=== PATIENT | female | born 1975 | race Caucasian/White ===

== ENCOUNTER → 2020-03-12 11:45 | Outpatient (BNVA) | payer BC, SELFPAY | PROVIDERS: Family Provider Family Medicine; PCP Family Medicine; Visit Provider Obstetrics & Gynecology | DX: N92.1 Excessive and frequent menstruation with irregular cycle (principal) | CPT/HCPCS: 83001; 84146; 84443; 85025 ==

== ENCOUNTER → 2020-10-16 08:09 | Outpatient (BNVA) | payer BC, SELFPAY | PROVIDERS: Family Provider Family Medicine; PCP Family Medicine; Visit Provider Obstetrics & Gynecology | DX: N92.0 Excessive and frequent menstruation with regular cycle (principal) | CPT/HCPCS: 76830 ==

== ENCOUNTER → 2020-10-18 13:48 | Outpatient (BNVA) | payer BC, SELFPAY | PROVIDERS: Family Provider Family Medicine; PCP Family Medicine; Visit Provider Obstetrics & Gynecology | DX: N92.1 Excessive and frequent menstruation with irregular cycle (principal) | CPT/HCPCS: 88305 ==

== ENCOUNTER → 2020-12-10 09:34 | Outpatient (BNVA) | payer BC, SELFPAY | PROVIDERS: Family Provider Family Medicine; PCP Family Medicine; Visit Provider Obstetrics & Gynecology | DX: Z20.822 Contact with and (suspected) exposure to COVID-19 (principal) | CPT/HCPCS: 87635 ==

== ENCOUNTER 2020-12-12 11:22 | Day surgery (SDC) | payer BC, SELFPAY ==
[2020-12-10 11:58] VITALS: BMI 26.5
--- NOTE | 2020-12-10 12:19 | P.ANESASSM_ITS ---
Pre-Anesthetic Assessment Pre-Anesthetic Assessment: Height/Weight: Height 1.6 m Weight 68.039 kg Preop Diagnosis: Abnormal uterine bleeding, endometrial polyp Proposed Procedure: Operation Date: 12/12/20 09:15 Proposed Procedures p Hysteroscopy w/ Myosure 15405 [id number] N84.0 N92.1(Not Applicable) - Bryan Mackay MD s Dilation And Curettage (D&C) polypectomy(Not Applicable) - Bryan Mckeon MD Familial anesthetic complications: None Social: Social History: No alcohol and No tobacco Exam: Pre-Anes Outpt Exam: alert, oriented x 3, clear to auscultation bilater ally and regular rate & rhythm Airway: Cervical ROM: WNL MP: 1 Dentition: Full Anesthetic Plan: ASA status: 1 Anesthesia: MAC Risk of > 500 ml blood loss (7ml/kg in children): No PFSH Anesthesia PFSH: Medical History Menorrhagia 44-year-old female with abnormal uterine bleeding. Referring she has been bleeding since July. She was prescribed OCPs. She referred a stop for a couple days because she started bleeding again. CBC, TSH, FSH, and pelvic ultrasound within normal limits. Family History Grandfather Heart disease maternal Grandmother Stroke maternal Family/Other Diabetes maternal aunt, maternal uncle, nephew Social History (Updated 12/10/20 @ 08:20 by Itzel Juarez RN) Smoking and tobacco status: never smoked Alcohol intake: current Alcohol intake frequency: 0-2 Drinks per Day Alcohol type: beer Data Anesthesia Cardiac Studies: No Data to Display
[2020-12-10 12:20] LABS: Add Urine Microscopic? NO
[2020-12-10 12:30] LABS: Basophils # 0.1 10^3/uL (0.0-0.1); Basophils % 0.7 %; Eosinophils # 0.1 10^3/uL (0.0-0.8); Eosinophils % 1.7 %; Hematocrit 38.3 % (37.0-47.0); Hemoglobin 12.4 g/dL (11.5-15.3); Lymphocytes # 1.7 10^3/uL (0.8-4.8); Lymphocytes % 23.8 %; Mean Corpuscular HGB Conc 32.4 g/dL (30.0-36.0); Mean Corpuscular Hemoglobin 29.5 pg (28.0-34.0); Mean Corpuscular Volume 91.2 fL (81-99); Mean Platelet Volume 10.3 fL (7.4-10.4); Monocytes # 0.6 10^3/uL (0.2-0.9); Monocytes % 7.8 %; Neutrophils # 4.73 10^3/uL (1.8-7.7); Neutrophils % 65.7 %; Nucleated Red Blood Cells % 0 %; Platelet Count 385 10^3/cmm (130-400); Red Cell Distribution Width 13.6 % (12.1-15.1); White Blood Count 7.2 10^3/uL (4.0-10.0)
[2020-12-10 12:35] LABS: OR HCG Qualitative Urine Negative (Negative)
[2020-12-10 12:36] LABS: Bilirubin Urine Neg (Negative); Blood Urine Neg (Negative); Glucose Urine UA Norm (Normal); Ketones Urine Negative (Negative); Leukocyte Esterase Urine Negative (Negative); Nitrate Urine Negative (Negative); Protein Urine Neg (Negative); Specific Gravity, Urine 1.015 (1.005-1.030); Urine Appearance Clear (CLEAR); Urine Color Yellow (Yellow); Urobilinogen Urine Norm (Negative); pH Urine 5 (5-7)
[2020-12-10 12:54] LABS: Alanine Aminotransferase 11 U/L (0-33); Albumin Level 4.3 g/dL (3.5-5.2); Alkaline Phosphatase 38 IU/L (35-105); Anion Gap 10.9 (5-19); Aspartate Amino Transferase 16 U/L (0-32); Blood Urea Nitrogen 10 mg/dL (6-20); Calcium 9.1 mg/dL (8.5-10.5); Carbon Dioxide 29 mmol/L (22-29); Chloride 103 mmol/L (98-107); Globulin 2.5 g/dL (1.3-4.6); Glomerular Filtration Rate 90.1 mL/min (90-130); Glucose 99 mg/dL (65-115); Osmolality Calculated 287 mOsm/kg (285-295); Potassium 3.9 mmol/L (3.5-5.1); Sodium 139 mmol/L (136-145); Total Bilirubin 0.2 mg/dL (0.15-1.2); Total Protein 6.8 g/dL (6.6-8.7)
[2020-12-12 11:37] LABS: OR HCG Qualitative Urine Negative (Negative)
[2020-12-12 11:50] VITALS: BP 157/94; PULSE 67; RESP 16; TEMP 36.6; O2SAT 99
[2020-12-12] MEDS: sodium chloride 0.9% 1,000 ML 30 ML IV (12:05)
[2020-12-12] MEDS: scopolamine 1.5 Patch 1 PATCH TRANSDERMA (12:06)
--- NOTE | 2020-12-12 12:54 | P.ANESUD_ITS ---
Pre-Anesthetic Update Pre-Anesthetic Assessment: Date of Surgery/Procedure: 12/12/20 Preop Melissa gnosis: Abnormal uterine bleeding, endometrial polyp Proposed Procedure: Operation Date: 12/12/20 12:50 Proposed Procedures p Hysteroscopy w/ Myosure 42187 [id number] N84.0 N92.1(Not Applicable) - Bryan Mckeon MD s Dilation And Curettage (D&C) polypectomy(Not Applicable) - Bryan Mckeon MD Any changes to Pre-Anesthetic Assessment?: No Last Intake: Intake Last Liquid Date 12/12/20 Last Liquid Time 07:00 Last Solid Date 12/11/20 Last Solid Time 21:00 Labs Last 48hrs: Laboratory Results - last 48 hr 12/10/20 12/10/20 12/12/20 12:12 12:12 11:32 Sodium 139 Potassium 3.9 Chloride 103 Carbon Dioxide 29 Anion Gap 10.9 BUN 10 Creatinine 0.7 GFR Calculation 90.1 Glucose 99 Calculated Osmolal ity 287 Calcium 9.1 Total Bilirubin 0.2 AST 16 ALT 11 Alkaline Phosphata se 38 Total Protein 6.8 Albumin 4.3 Globulin 2.5 Urine HCG, Qual Negative Blood Type A Positive Rho(D) Type Positive Antibody Screen Negative Vitals: Temperature 97.8 F 12/12/20 11:50 Pulse Rate 67 12/12/20 11:50 Respiratory Rate 16 12/12/20 11:50 Blood Pressure 157/94 12/12/20 11:50 Blood Pressure Cyndy n 115 12/12/20 11:50 Pulse Oximetry 99 12/12/20 11:50 Exam: Pre-Anes Outpt Exam: alert, oriented x 3, clear to auscultation bilaterally and regular rate & rhythm Cardiac Studies: No Data to Display
--- NOTE | 2020-12-12 13:17 | W.PM.OPSUD ---
Surgery/Procedure H&P Update DATE OF PROCEDURE: December 12, 2020 DATE H&P PERFORMED: 12/10/20 H&P UPDATE INFORMATION: I have reviewed H&P completed within last 30 days, I have examined patient prior to procedure and No changes to prior documentation PREOP DIAGNOSIS: Abnormal uterine bleeding, endometrial polyp PLANNED PROCEDURE: Operation Date: 12/12/20 12:50 Proposed Procedures p Hysteroscopy w/ Myosure 22475 52950 N84.0 N92.1(Not Applicable) - Bryan Mckeon MD s Dilation And Curettage (D&C) polypectomy(Not Applicable) - Bryan Mckeon MD
--- NOTE | 2020-12-12 14:40 | PM.OP ---
Operative Report Date of procedure: December 12, 2020 Pre-op Diagnosis: Abnormal uterine bleeding, endometrial polyp Post-op diagnosis: same Post-op Findings: Proliferative endometrium Procedure Done: Hysteroscopy with D&C via MyoSure Estimated blood loss (mL): 10 IV fluids (mL): 1,000 Complications: none Findings: Proliferative endometrium Brief History: 45-year-old female with abnormal uterine bleeding unresponsive to medical management Procedure: After informed consent, the risks included but were not limited to bleeding, infection, injury to internal organs. The patient was counseled on a possible laparotomy and on the potential need for hysterectomy. The patient expressed understanding of the risks involved, all questions were answered, and the patient consented to the procedure. The patient was taken to the operating room where general anesthesia was administered. She was placed in the dorsal lithotomy position and prepped and draped in sterile fashion. A time out procedure was performed. The patient was examined under anesthesia and found to have a normal uterus with normal adnexa. A sterile weight speculum was placed in the vagina. The uterus was then gently sounded to 8 cm, and the cervix was dilated. The 0 degrees MyoSure hysteroscope was advanced gently to the uterine fundus while visualizing the monitor. Survey of the uterine cavity showed: Proliferative endometrium, the fundus shows normal proliferative endometrium; left ostium was visualized, and lateral wall with proliferative endometrium; right ostium visualized, and lateral wall with proliferative endometrium; anterior and posterior verdin are with proliferative endometrium; endocervical canal is normal. The MyoSure Lite device was advanced and the direct visualization the proliferative endometrium was morcellated without complication. At the end of morcellation the fluid deficit was 450 mL and was estimated at approximately 200 mL were on the floor. There was minimal bleeding noted and the tenaculum removed with goad hemostasis noted. The patient tolerated the procedure well. The patient was taken to the recovery area in stable condition.
[2020-12-12 14:45] VITALS: BP 142/72; PULSE 88; RESP 20; TEMP 36.7; O2SAT 100
[2020-12-12 14:50] VITALS: BP 132/78; PULSE 67; RESP 12; O2SAT 100
[2020-12-12 14:55] VITALS: BP 133/82; PULSE 71; RESP 17; O2SAT 98
[2020-12-12 15:00] VITALS: BP 125/76; PULSE 66; RESP 17; TEMP 36.8; O2SAT 99
[2020-12-12 15:06] VITALS: BP 129/75; PULSE 65; RESP 16; TEMP 36.8; O2SAT 100
--- NOTE | 2020-12-12 16:00 | ANE.PACU2 ---
Inpatient post-anesthesia follow up: Airway intact: Yes Vital signs: Temperature 98.2 F Pulse Rate 65 Respiratory Rate 16 Blood Pressure 129/75 Pulse Oximetry 100 Oxygen Delivery Me thod Room Air Oxygen Flow Rate Fraction of Inspir ed Oxygen Hydration adequate: Yes Nausea and vomiting: No Pain level: 2 Mental status: Baseline
== END 2020-12-12 14:40 | disposition home or self-care (01) ==
PROVIDERS: Family Provider Family Medicine; PCP Family Medicine; Visit Provider Obstetrics & Gynecology
PROC: 0UDB8ZZ Extraction of Endometrium, Via Natural or Artificial Opening Endoscopic (ICD-10-PCS; CPT 58558; principal; 2020-12-12 12:50)
PROC: (CPT 58120; 2020-12-12 12:50)
DX: N93.9 Abnormal uterine and vaginal bleeding, unspecified (principal); N84.0 Polyp of corpus uteri
CPT/HCPCS: 58558; 36415; 80053; 81003; 81025; 84703; 85025; 86850; 86900; 88305; 96365; J0690; J1100; J1885; J2405; J2704; J3010; J7030

== ENCOUNTER → 2021-06-20 08:12 | Outpatient (BNVA) | payer BC, SELFPAY | PROVIDERS: Family Provider Family Medicine; PCP Family Medicine; Visit Provider Obstetrics & Gynecology | DX: N84.0 Polyp of corpus uteri (principal); N93.9 Abnormal uterine and vaginal bleeding, unspecified; Z20.822 Contact with and (suspected) exposure to COVID-19 | CPT/HCPCS: 87635 ==

== ENCOUNTER 2021-06-26 08:53 | Observation (INO) | payer BC, SELFPAY ==
[2021-06-24 09:22] LABS: Add Urine Microscopic? NO; Charge for UA Resulting for Rev
[2021-06-24 09:24] VITALS: BMI 26.5
[2021-06-24 09:26] LABS: Bilirubin Urine Neg (Negative); Blood Urine Neg (Negative); Glucose Urine UA Norm (Normal); Ketones Urine Negative (Negative); Leukocyte Esterase Urine Negative (Negative); Nitrate Urine Negative (Negative); Protein Urine Neg (Negative); Specific Gravity, Urine 1.005 (1.005-1.030); Urine Appearance Clear (CLEAR); Urine Color Straw (Yellow); Urobilinogen Urine Norm (Negative); pH Urine 7 (5-7)
[2021-06-24 09:52] LABS: OR HCG Qualitative Urine Negative (Negative)
[2021-06-24 09:53] LABS: Basophils # 0.1 10^3/uL (0.0-0.1); Eosinophils # 0.2 10^3/uL (0.0-0.8); Eosinophils % 3.1 %; Hematocrit 39.6 % (37.0-47.0); Hemoglobin 12.8 g/dL (11.5-15.3); Lymphocytes # 1.7 10^3/uL (0.8-4.8); Lymphocytes % 35.7 %; Mean Corpuscular HGB Conc 32.3 g/dL (30.0-36.0); Mean Corpuscular Hemoglobin 30.6 pg (28.0-34.0); Mean Corpuscular Volume 94.7 fl (81-99); Mean Platelet Volume 10.3 fL (7.4-10.4); Monocytes # 0.5 10^3/uL (0.2-0.9); Monocytes % 9.7 %; Neutrophils # 2.44 10^3/uL (1.8-7.7); Neutrophils % 50.3 %; Nucleated Red Blood Cells % 0 %; Platelet Count 264 10^3/cmm (130-400); Red Blood Count 4.18 10^6/uL (4.1-5.3); Red Cell Distribution Width 12.9 % (12.1-15.1); White Blood Count 4.9 10^3/uL (4.0-10.0)
[2021-06-24 10:39] LABS: Alanine Aminotransferase 43 U/L (0-33); Albumin Level 4.3 g/dL (3.5-5.2); Alkaline Phosphatase 41 IU/L (35-105); Anion Gap 12.9 (5-19); Aspartate Amino Transferase 29 U/L (0-32); Blood Urea Nitrogen 8 mg/dL (6-20); Calcium 8.7 mg/dL (8.5-10.5); Carbon Dioxide 27 mmol/L (22-29); Chloride 105 mmol/L (98-107); Creatinine Clr Calc Pharmacy 91.9985; Globulin 2.2 g/dL (1.3-4.6); Glomerular Filtration Rate 89.7 mL/min (90-130); Glucose 85 mg/dL (65-115); Osmolality Calculated 290 mOsm/kg (285-295); Potassium 3.9 mmol/L (3.5-5.1); Sodium 141 mmol/L (136-145); Total Bilirubin 0.3 mg/dL (0.15-1.2); Total Protein 6.5 g/dL (6.6-8.7)
--- NOTE | 2021-06-24 10:50 | P.ANESASSM_ITS ---
Pre-Anesthetic Assessment Pre-Anesthetic Assessment: Height/Weight: Height 1.6 m Weight 68.039 kg Preop Diagnosis: Abnormal uterine bleeding, endometrial polyp Proposed Procedure: Operation Date: 06/26/21 07:00 Proposed Procedures p Laparoscopic Assist Vaginal Hysterectomy 60778 N93.9 R10.2(Not Applicable) - Bryan Mckeon MD Was Beta Gloria taken within 24 hours: N/A Was Clonidine taken within 24 hours: N/A Social: Social History: No alcohol and No tobacco Exam: Pre-Anes Outpt Exam: alert, oriented x 3, clear to auscultation bilaterally and regular rate & rhythm Airway: Submandibular: WNL Cervical ROM: WNL MP: 2 Dentition: Full History/ROS: No significant history except as noted Anesthetic Plan: ASA status: 1 Anesthesia: General Risk of > 500 ml blood loss (7ml/kg in children): No PFSH Anesthesia PFSH: Medical History (Updated 01/28/21 @ 16:25 by Bryan Mckeon MD) Aftercare following surgery of the genitourinary system Menorrhagia 44-year-old female with abnormal uterine bleeding. Referring she has been bleeding since July. She was prescribed OCPs. She referred a stop for a couple days because she started bleeding again. CBC, TSH, FSH, and pelvic ultrasound within normal limits. Status post hysteroscopy 12/12/2020- hysteroscopy with D&C viz myosure performed by Dr. Mckeon at [facility] Surgical History S/P exploratory laparotomy S/P tubal ligation Family History Grandfather Heart disease maternal Anesthesia complication paternal Grandmother Stroke maternal Family/Other Diabetes maternal aunt, maternal uncle, nephew Breast cancer maternal cousin, diagnosed in 40's Denies family history of Colon cancer Ovarian cancer Clotting disorder Hyperlipidemia Bleeding disorder Hypertension Uterine cancer Thyroid condition Social History (Updated 06/24/21 @ 08:01 by Elaine Enriquez RN) Smoking and tobacco status: never smoked Alcohol intake: current Alcohol intake frequency: 0-2 Drinks per Day Alcohol type: beer Substance/Drug Use: never Female Reproductive History: Date of last menstrual period: 05/14/21 Data Anesthesia CBC & Chem 7: 06/24/21 09:15 06/24/21 09:15 Other Labs: Laboratory Results - last 48 hr 06/24/21 06/24/21 06/24/21 09:15 09:15 09:15 WBC 4.9 RBC 4.18 Hgb 12.8 Hct 39.6 MCV 94.7 MCH 30.6 MCHC 32.3 RDW 12.9 Plt Count 264 MPV 10.3 Neut % (Auto) 50.3 Lymph % (Auto) 35.7 [place] % (Auto) 9.7 Eos % (Auto) 3.1 Baso % (Auto) 1.0 Neut # (Auto) 2.44 Lymph # (Auto) 1.7 [place] # (Auto) 0.5 Eos # (Auto) 0.2 Baso # (Auto) 0.1 Nucleated RBC % (auto) 0 Nucleated RBCs # 0.0 Sodium Potassium Chloride Carbon Dioxide Anion Gap BUN Creatinine GFR Calculation Glucose Calculated Osmolality Calcium Total Bilirubin AST ALT Alkaline Phosphatase Total Protein Albumin Globulin Urine Color Straw Urine Appearance Clear Urine pH 7 Ur Specific [place] 1.005 Urine Protein Neg Urine Glucose (UA) Norm Urine Ketones Negative Urine Blood Neg Urine Nitrate Negative Urine Bilirubin Neg Urine Urobilinogen Norm Ur Leukocyte Esterase Negative Urine HCG, Qual Negative 06/24/21 09:15 WBC RBC Hgb Hct MCV MCH MCHC RDW Plt Count MPV Neut % (Auto) Lymph % (Auto) [place] % (Auto) Eos % (Auto) Baso % (Auto) Neut # (Auto) Lymph # (Auto) [place] # (Auto) Eos # (Auto) Baso # (Auto) Nucleated RBC % (auto) Nucleated RBCs # Sodium 141 Potassium 3.9 Chloride 105 Carbon Dioxide 27 Anion Gap 12.9 BUN 8 Creatinine 0.7 GFR Calculation 89.7 L Glucose 85 Calculated Osmolality 290 Calcium 8.7 Total Bilirubin 0.3 AST 29 ALT 43 H Alkaline Phosphatase 41 Total Protein 6.5 L Albumin 4.3 Globulin 2.2 Urine Color Urine Appearance Urine pH Ur Specific [place] Urine Protein Urine Glucose (UA) Urine Ketones Urine Blood Urine Nitrate Urine Bilirubin Urine Urobilinogen Ur Leukocyte Esterase Urine HCG, Qual Cardiac Studies: No Data to Display
[2021-06-26] VITALS (21 sets, daily range): BP systolic 105–132; BP diastolic 57–84; PULSE 51–94; RESP 14–20; TEMP 36.5–37.2; O2SAT 94–100
[2021-06-26] MEDS: sodium chloride 0.9% 500 ML IV (06:30)
[2021-06-26 06:42] LABS: OR HCG Qualitative Urine Negative (Negative)
[2021-06-26] MEDS: scopolamine 1.5 Patch 1 PATCH TRANSDERMA (06:44)
--- NOTE | 2021-06-26 06:48 | W.PM.OPSUD ---
Surgery/Procedure H&P Update DATE OF PROCEDURE: June 26, 2021 DATE H&P PERFORMED: 06/24/21 H&P UPDATE INFORMATION: I have reviewed H&P completed within last 30 days, I have examined patient prior to procedure and No changes to prior documentation PREOP DIAGNOSIS: Abnormal uterine bleeding, endometrial polyp PLANNED PROCEDURE: Operation Date: 06/26/21 07:00 Proposed Procedures p Laparoscopic Assist Vaginal Hysterectomy 00991 N93.9 R10.2(Not Applicable) - Bryan Mckeon MD
--- NOTE | 2021-06-26 06:56 | ANES.PAUD2 ---
Pre-Anesthetic Update Pre-Anesthetic Assessment: Date of Surgery/Procedure: 06/26/21 Preop Diagnosis: Abnormal uterine bleeding, endometrial polyp Proposed Procedure: Operation Date: 06/26/21 07:00 Proposed Procedures p Laparoscopic Assist Vaginal Hysterectomy 10993 N93.9 R10.2(Not Applicable) - Bryan Mckeon MD Any changes to Pre-Anesthetic Assessment?: No Last Intake: Intake Last Liquid Date 06/25/21 Last Liquid Time 20:00 Last Solid Date 06/25/21 Last Solid Time 20:00 Labs Last 48hrs: Laboratory Results - last 48 hr 06/24/21 06/24/21 06/24/21 09:15 09:15 09:15 WBC 4.9 RBC 4.18 Hgb 12.8 Hct 39.6 MCV 94.7 MCH 30.6 MCHC 32.3 RDW 12.9 Plt Count 264 MPV 10.3 Neut % (Auto) 50.3 Lymph % (Auto) 35.7 [place] % (Auto) 9.7 Eos % (Auto) 3.1 Baso % (Auto) 1.0 Neut # (Auto) 2.44 Lymph # (Auto) 1.7 [place] # (Auto) 0.5 Eos # (Auto) 0.2 Baso # (Auto) 0.1 Nucleated RBC % (a uto) 0 Nucleated RBCs # 0.0 Sodium Potassium Chloride Carbon Dioxide Anion Gap BUN Creatinine GFR Calculation Glucose Calculated Osmolal ity Calcium Total Bilirubin AST ALT Alkaline Phosphata se Total Protein Albumin Globulin Urine Color Straw Urine Appearance Clear Urine pH 7 Ur Specific [place] y 1.005 Urine Protein Neg Urine Glucose (UA) Norm Urine Ketones Negative Urine Blood Neg Urine Nitrate Negative Urine Bilirubin Neg Urine Urobilinogen Norm Ur Leukocyte [place] Negative Urine HCG, Qual Negative Blood Type Rho(D) Type Antibody Screen 06/24/21 06/24/21 06/26/21 09:15 09:15 06:41 WBC RBC Hgb Hct MCV MCH MCHC RDW Plt Count MPV Neut % (Auto) Lymph % (Auto) [place] % (Auto) Eos % (Auto) Baso % (Auto) Neut # (Auto) Lymph # (Auto) [place] # (Auto) Eos # (Auto) Baso # (Auto) Nucleated RBC % (a uto) Nucleated RBCs # Sodium 141 Potassium 3.9 Chloride 105 Carbon Dioxide 27 Anion Gap 12.9 BUN 8 Creatinine 0.7 GFR Calculation 89.7 L Glucose 85 Calculated Osmolal ity 290 Calcium 8.7 Total Bilirubin 0.3 AST 29 ALT 43 H Alkaline Phosphata se 41 Total Protein 6.5 L Albumin 4.3 Globulin 2.2 Urine Color Urine Appearance Urine pH Ur Specific Grav[place] y Urine Protein Urine Glucose (UA) Urine Ketones Urine Blood Urine Nitrate Urine Bilirubin Urine Urobilinogen Ur Leukocyte Ellie ase Urine HCG, Qual Negative Blood Type A Positive Rho(D) Type Positive Antibody Screen Negative Vitals: Temperature 97.7 F 06/26/21 06:19 Temperature Source Temporal Artery S can 06/26/21 06:19 Pulse Rate 61 06/26/21 06:19 Pulse Rhythm 06/26/21 06:19 Pulse Strength 3+ Normal 06/26/21 06:19 Respiratory Rate 18 06/26/21 06:19 Blood Pressure 132/81 06/26/21 06:19 Blood Pressure Cyndy n 98 06/26/21 06:19 Pulse Oximetry 98 06/26/21 06:19 Oxygen Delivery Me thod 06/26/21 06:19 Exam: Pre-Anes Outpt Exam: alert, oriented x 3, clear to auscultation bilaterally and regular rate & rhythm Cardiac Studies: No Data to Display
[2021-06-26] MEDS: ceFOXitin 2,000 MG in sodium chloride 0.9% (plus) 50 ML 100 MG IV (07:00)
[2021-06-26] MEDS: sodium chloride 0.9% 1,000 ML 30 ML IV (07:10)
--- NOTE | 2021-06-26 08:53 | P.OP_ITS ---
Operative Report Date of procedure: June 26, 2021 Pre-op Diagnosis: Abnormal uterine bleeding, endometrial polyp Post-op diagnosis: same Procedure Done: Laparoscopic-assisted vaginal hysterectomy Specimens removed/disposition: Uterus Surgeon: Bryan Mckeon MD Anesthesia: General Estimated blood loss (mL): 150 IV fluids (mL): 1,000 Urine output (mL): 250 Complications: None Condition: stable Disposition: PACU Procedure: After discussing informed consent again, the patient was taken to the operating room where general anesthesia was administered. She was placed in the dorsal lithotomy position in low stirrups and prepped and draped in sterile fashion. Pre-Procedure Time-Out verifying the correct patient identity, correct procedure verified with consent, correct site and side, correct patient position, availability of correct implants and any special equipment or requirements was performed and acknowledge by the OR team. After the initial preparation, the procedure commenced at the vagina. With a Bookwalter vaginal retractor was place to visualize the cervix; the anterior and posterior lips of the cervix were separately grasped and clamped with pam tooth tenaculum. The cervix was then dilated to a #6 hegar dilator and a uterine manipulator within the uterine cavity for manipulation purposes being careful not to puncture the uterus. A Sotelo catheter was placed in the bladder. Attention was then turned to the abdomen. The umbilical region was infiltrated with 2% lidocaine with epinephrine. Following infiltration with lidocaine, an intraumbilical incision was made and the Verres needle was gently advanced taking care to feel for the typical sensation of penetrating the peritoneum. With CO2 infiltration, an opening pressure of 4 mmHg was noted, and following this, a pneumoperitoneum of 13 mmHg was created. A 5 mm Optiview trocar was then passed through the same incision under direct visualization. Trocar was removed and the laparoscope was then inserted through the trocar sleeve. Visualization of the peritoneal cavity was then obtained and a brief inspection did not reveal any signs of complications from entry. Under direct observation, a second incision was made 3 cm above the symphysis pubis, and a 5 mm trocar and sleeve were admitted into the abdomen under direct, laparoscopic visualization, Once the placement of the ports was complete, the actual laparoscopic procedure began. Beginning on the right side and distally along the length of the fallopian tube, the mesosalpinx was exposed by lifting the tubes up towards the anterior abdominal wall. The mesosalpinx was then sequentially, clamped, ligated, and cut using the Voyant device working alongside the length of the tube and towards the cornua. Once the level of the cornua was reached the tube was cut, and attention was then turned to the other side. The same process was repeated on the left, se quentially clamping, sealing/ligating, and cutting the mesosalpinx being sure to not injure the adjacent ovarian tissue or other surrounding structures. The round ligament was then clamped, sealed/ligated and cut with the Voyant device. Following this, the anterior leaf of the broad ligament was then taken down on the left side, dissecting down towards the peritoneal reflection at the base of the bladder and adjacent to the cervix. The same process was then repeated on the left side such that both sides met and the anterior leaflet had been appropriately skeletonized. To ensure excellent hemostasis prior to further manipulation, the pedicles of the cardinal ligament was then clamped sealed/ligated and divided on each side using the Voyant device. Attention was then turned to the vaginal aspect of the surgery. The Sotelo catheter was clamped. A Bookwalter vaginal retractor was placed in the vagina and the uterine manipulator was removed. The tenaculum was repositioned anteriorly and posteriorly. A circumferential incision was made at the cervical vaginal reflection using cautery. This was undermined first anteriorly and a colpotomy made without difficulty. This was then repeated posteriorly and a similar colpotomy made. Tello retractors were then placed into each of these incisions. Beginning first on the patient's left, the uterosacral and cardinal ligament was clamped, sealed, divided, and suture ligated. Two bites were required to reach the previous dissection margin of the left side. The same process was then repeated on the patient's right hand side, at which point, the specimen was completely freed. Once the sutures had been placed and the pedicles secured, the uterus was removed transvaginally without difficulty. All pedicles were inspected and hemostasis was confirmed. The vaginal vault was then oversewn with a running locking Vicryl suture, securing first the posterior edge of the cuff followed by the anterior edge. Good hemostasis was obtained. Two figure-of- eight sutures were then placed across the vaginal vault to close it. Once these had been tied off, all sutures were trimmed; a wet sponge was placed in the vagina to pack it off while attention was again turned back to the abdomen. All instruments and sponge were removed from the vagina at this time. Using the laparoscopic irrigation device, the abdomen was carefully irrigated and inspected to ensure complete hemostasis. Bipolar cautery was used on the pedicles to ensure they were hemostatic and secure. Once the entire abdomen was inspected, the water was suctioned and the instruments carefully removed. The ports were then removed under direct visualization being sure to note hemostasis of the port sites on removal. Patient was given methylene blue IV. The incisions were then closed with interrupted Monocryl sutures and Dermabond. The patient tolerated the procedure well, anesthesia reversed, and the patient was taken to the recovery room in stable condition. All sponges, instruments, and sharps were counted and correct x 3.
[2021-06-26] MEDS: meperidine 50 mg/mL INJ 12.5 MG IVP (09:14)
--- NOTE | 2021-06-26 09:29 | SUR.PHASEI ---
0859 PT TO PACU SHIVERING WARM BLANKETS X 4 TO PT PT AWAKES TO VOICE, VSS ABD SOFT 2 SITES WITH DERMA VÁSQUEZ ANASTASIYA PAD D/I BILAT SCDS ON AND HECK CATHETER WITH STATLOCK TO RT THIGH GREEN URINE NOTED TO TUBING AND BAG. IV TO RT WRIST PATENT 0914 PT CONTINUES TO SHIVER , C/O OF PAIN AT 4 NOW SEE MED GIVEN FOR SHIVERING. 0932 PT SLEEPS IF NOT DISTURBED VSS SATS ON RA 95% PT TAKING OCC ICE CHIPS.
[2021-06-26] MEDS: dextrose 5%-lactated ringers 1,000 ML 125 ML IV (11:05)
--- NOTE | 2021-06-26 14:17 | ANE.PACU2 ---
Inpatient post-anesthesia follow up: Airway intact: Yes Vital signs: Temperature 98.7 F Pulse Rate 57 Respiratory Rate 18 Blood Pressure 116/75 Pulse Oximetry 98 Oxygen Delivery Me thod Room Air Oxygen Flow Rate 8 Fraction of Inspir ed Oxygen Hydration adequate: Yes Nausea and vomiting: No Pain level: 2 Mental status: Baseline
[2021-06-26] MEDS: ketorolac 30 mg/mL INJ IVP ×2 (16:29→22:00)
[2021-06-26] MEDS: docusate sodium 100 mg Capsule PO (17:36)
[2021-06-27 04:00] VITALS: BP 101/60; PULSE 73; TEMP 36.9
[2021-06-27] MEDS: sodium chloride 0.9% 500 ML IV (04:33)
[2021-06-27] MEDS: ketorolac 30 mg/mL INJ IVP (04:35)
[2021-06-27 05:29] LABS: Hematocrit 33.3 % (37.0-47.0); Hemoglobin 10.5 g/dL (11.5-15.3); Mean Corpuscular HGB Conc 31.5 g/dL (30.0-36.0); Mean Corpuscular Hemoglobin 30.3 pg (28.0-34.0); Mean Corpuscular Volume 96.2 fl (81-99); Mean Platelet Volume 10.5 fL (7.4-10.4); Platelet Count 195 10^3/cmm (130-400); Red Blood Count 3.46 10^6/uL (4.1-5.3); Red Cell Distribution Width 13.3 % (12.1-15.1); White Blood Count 10.4 10^3/uL (4.0-10.0)
[2021-06-27] MEDS: ibuprofen 800 mg tablet PO (08:15)
[2021-06-27] MEDS: docusate sodium 100 mg Capsule PO (08:15)
--- NOTE | 2021-06-27 09:33 | PC.NURSE ---
Patient tolerated regular diet, denying any nausea or vomiting.
[2021-06-27 09:56] VITALS: BP 101/66; PULSE 58; RESP 16; TEMP 36.7; O2SAT 98
--- NOTE | 2021-06-27 10:09 | P.DS_ITS ---
Discharge Providers PROJECT MANAGEMENT Date of Admission: 06/26/21 08:53 Date of Discharge: 06/27/21 Attending Provider at Admission: Bryan Mckeon MD Attending Provider at Discharge: Bryan Mckeon MD Primary Care Provider: Billy Dickerson MD Reason for Visit Reason for Visit: abnormal bleeding Hospital Course Hospital Course Mrs. Deanna Diaz laparoscopic-assisted vaginal hysterectomy the LAVH was performed without complication. She is afebrile and hemodynamically stable postoperatively day 1. Tolerating diet well. Ambulating without difficulty. Passing flatus. Adequate urine output. Pain under control. Physical Exam Narrative: EXAM NARRATIVE: GA: Alert and oriented ?3. HEENT: WNL. Heart: Regular rate and rhythm. Lungs: Clear to auscultation bilaterally. Abdomen: Bowel sounds present BOX OFFICE ATTENDANT: Scant bleeding. Extremities: No edema, no cyanosis, no calves pain. Urinary Catheter Management^: f: Cath Placed During This Visit: yes, but has since been removed by the nurse Reason for Continuing Indwelling Catheter: Decision to DC Catheter Urinary Catheter Date of Insertion: 06/26/21 Urinary Catheter Time of Insertion: 07:27 Date Urinary Catheter Removed: 06/27/21 Time Urinary Catheter Discontinued: 10:02 Discharge Data Data Completed and Pending: Pending at discharge Category Date Time Status ES surgery / GI i mages Routine Exams 06/26/21 06:46 Taken Pathology: Surgic al [PTH] Routine Pth 06/26/21 08:22 Received Labs from last 24 hours 06/27/21 05:14 WBC 10.4 H RBC 3.46 L Hgb 10.5 L Hct 33.3 L MCV 96.2 MCH 30.3 MCHC 31.5 RDW 13.3 Plt Count 195 MPV 10.5 H Vitals: Last Vital Signs Temp 98.1 F 06/27/21 09:56 Pulse 58 L 06/27/21 09:56 Resp 16 06/27/21 09:56 BP 101/66 06/27/21 09:56 Pulse Ox 98 06/27/21 09:56 Discharge Plan Discharge Patient Disposition: Home Condition: Stable Prescriptions: New acetaminophen 325 mg capsule 325 mg PO Q4H PRN (Reason: fever or postoperative pain) Qty: 60 RF: 0 ibuprofen 800 mg tablet 800 mg PO TID PRN (Reason: pain) Qty: 60 RF: 0 hydrocodone-acetaminophen 5-325 mg tablet 1 tab PO Q4H PRN (Reason: pain) Qty: 30 RF: 0 Discharge Orders: Discharge Order (Routine); Ordered 06/27/21 Ordered By: Bryan Mckeon Referrals: Bryan Mckeon MD [Physician] - 07/15/21 10:30 am (2 week post-op appointment is on 07/15/2021 at 10:30 am. 6 week post-op appointment is on 08/06/2021 at 10:45 am.) Discharge Diet: Usual diet Patient Instructions: Laparoscopic Hysterectomy (DC), Postoperative Bleeding (DC), OB Discharge Report, OB Food/Drug Interaction Guide, Opioid Safety Activity Restrictions/Additional Instructions: 1. Please call [facility] [place]note 2[place] on next working day to make your post-operative appointment in 2 weeks. 2. Please stay home until you come back to the clinic on first post-operative check up. 3. Please follow instructions on your medications CAREFULLY. 4. If you have abdominal incision, do not cover it unless dressing is necessary because of drainage. OK to shower, but avoid bath. Leave steri-strips until they fall off. If they are still on one week after surgery, you may remove them. 5. If you had vaginal surgery or vaginal repair, Dr. Mckeon may instruct you to take SITZ bath. 6. Yellow, blood tinged odorous vaginal discharge is usually normal after hysterectomy or vaginal surgeries. 7. No sexual intercourse, tampons, or douches until you are completely released from the post-operative care. 8. Avoid constipation by eating right and maybe using some Metamucil or Milk of Magnesia. 9. All prescription refills are given during the working hours. Please do no wait till it runs out. Call the clinic at [phone] before your medication runs out. The clinic will get in touch with your doctor to prescribe medications if necessary. 10. Please remain within 40 mile radius from our hospital because emergencies do happen now and then during the post-operative period. 11. If you have stairs at home, take one step at a time slowly and minimize the number of trips. It helps to stay in one floor for the next few days. No lifting except what you can lift by one hand until you are released from the post-operative care. 12. Driving is discouraged until you are well healed. It may be 3-4 weeks before you feel strong enough to drive. You should be able to turn and look through the rear window without pain and you should be able to push the brake pedal very hard without pain before you drive. No fast rules, but SAFETY should be your primary concern. DO NOT drive if you are on sedating medications such as narcotics. 13. Call the clinic (during working hours) to make urgent appointment or go to the Emergency room, if any of the following occurs: i. Vaginal bleeding becomes heavy, more than a period. ii. Incision becomes red and sore, or drains pus. iii. Your temperature is over 100.4 or you have chill. iv. IV site becomes red and swollen (a little ``knot?? is usually OK) v. Persistent nausea and vomiting vi. Persistent constipation or diarrhea vii. Rash or allergic reaction to medications. Discharge Attestations PROJECT MANAGEMENT Time Spent in Discharge Care*: greater than 30 min Coding Level of Care Code Acute [employer] Marker for Melissa Simmons
== END 2021-06-27 10:42 | disposition home or self-care (01) ==
LOC: OBGYN 08:53
PROVIDERS: Anesthesiology; Admitting Provider Obstetrics & Gynecology; PCP Family Medicine; Visit Provider Obstetrics & Gynecology
PROC: 0UT9FZZ Resection of Uterus, Via Natural or Artificial Opening With Percutaneous Endoscopic Assistance (ICD-10-PCS; CPT 58550; principal; 2021-06-26 07:00)
DX: N93.9 Abnormal uterine and vaginal bleeding, unspecified (principal); N84.0 Polyp of corpus uteri
CPT/HCPCS: 58550; 36415; 51702; 80053; 81003; 81025; 84703; 85025; 85027; 86850; 86900; 88307; 96365; G0378; J0694; J1100; J1885; J2175; J2250; J2405; J2704; J2710; J3010; J3490; J7030; J7040; Q9968

== ENCOUNTER → 2021-08-06 11:30 | Outpatient (BNVA) | payer BC, SELFPAY | PROVIDERS: PCP Family Medicine; Visit Provider Obstetrics & Gynecology | DX: R23.2 Flushing (principal) | CPT/HCPCS: 83001 ==

== ENCOUNTER → 2025-08-19 12:21 | Outpatient (BNVA) | payer OTHER, SELFPAY | PROVIDERS: PCP Family Medicine; Visit Provider Family Medicine | DX: Z72.51 High risk heterosexual behavior (principal) | CPT/HCPCS: 87491; 87530; 87591; 87806 ==